=== PATIENT | female | born 1975 | race American Indian/Alaskan Native ===

== ENCOUNTER 2017-02-21 07:53 | Emergency (ER) | payer OTHER ==
[2017-02-21 08:02] VITALS: BP 114/75
[2017-02-21] MEDS ORDERED: XOPENEX IH ONE (10:26)
[2017-02-21] MEDS ORDERED: ORAPRED ONE (10:39)
[2017-02-21] MEDS ORDERED: FLEXERIL PO ONE (11:50)
[2017-02-21] MEDS ORDERED: TYLENOL PO ONE (11:50)
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
== END 2017-02-21 13:47 | disposition home or self-care (01) ==
LOC: ED 07:53
DX: S93.601A Unspecified sprain of right foot, initial encounter (principal); G43.909 Migraine, unspecified, not intractable, without status migrainosus; E66.9 Obesity, unspecified; Z88.0 Allergy status to penicillin; V43.62XA Car passenger injured in collision with other type car in traffic accident, initial encounter; Y93.9 Activity, unspecified; Y99.9 Unspecified external cause status; Y92.410 Unspecified street and highway as the place of occurrence of the external cause
CPT/HCPCS: 99283; J7510

== ENCOUNTER 2017-05-24 11:31 | Emergency (ER) | payer OTHER | END 2017-05-24 11:32 | disposition left against medical advice (07) | LOC: ED 11:31 | DX: Z53.21 Procedure and treatment not carried out due to patient leaving prior to being seen by health care provider (principal) ==

== ENCOUNTER 2018-05-31 16:21 | Emergency (ER) | payer OTHER ==
[2018-05-31 17:38] VITALS: BP 114/90
[2018-05-31 18:31] LABS: Basophils % (Auto) 0.7 % (0.0-1.8); Eosinophils # (Auto) 0.3 K/mm3 (0.0-0.4); Eosinophils % (Auto) 4.1 % (0.0-4.3); Hematocrit 36.9 % (30.3-42.9); Hemoglobin 12.6 gm/dl (10.1-14.3); Lymphocytes # (Auto) 3.7 K/mm3 (1.2-5.4); Lymphocytes % (Auto) 49.2 % (13.4-35.0); Mean Corpuscular HGB Conc 34 % (30-34); Mean Corpuscular Volume 81 fl (79-97); Monocytes # (Auto) 0.6 K/mm3 (0.0-0.8); Monocytes % (Auto) 7.6 % (0.0-7.3); Platelet Count 190 K/mm3 (140-440); Red Blood Count 4.54 M/mm3 (3.65-5.03); Red Cell Distribution Width 13.7 % (13.2-15.2)
[2018-05-31 18:44] LABS: BUN/Creatinine Ratio 16; Blood Urea Nitrogen 8 mg/dL (7-17); Calcium 8.9 mg/dL (8.4-10.2); Hemolysis Index 9
[2018-05-31] MEDS ORDERED: DECADRON IM ONE (19:52)
[2018-05-31] MEDS ORDERED: TYLENOL PO ONE (19:52)
[2018-05-31] MEDS ORDERED: PROVENTIL IH ONE (19:52)
[2018-05-31] MEDS ORDERED: TYLENOL #3 PO ONE (19:52)
--- NOTE | 2018-05-31 20:03 | Emergency Department Report ---
- General Chief Complaint: Upper Respiratory Infection Stated Complaint: FLU LIKE Time Seen by Provider: 05/31/18 19:50 Source: patient Mode of arrival: Ambulatory Limitations: No Limitations - History of Present Illness Initial Comments: Patient is a 42-year-old female with history of bronchitis and presents for a cough yellow green nocturnal fever with wheezing with head Sinus congestion, patient knows the last 3 days of cough producing chest pain 3/10 left lateral coughing there is no nausea vomiting no back pain dizziness lightheadedness no activity intolerance PND shortness of breath, is improved albuterol inhaler which she ran out of today. MD Complaint: fever, cough, sore throat, rhinorrhea, nasal congestion, sinus pain Onset/Timin -: week(s) Severity: moderate Severity scale (0 -10): 4 Quality: sharp Consistency: intermittent Improves With: other (albutero) Worsens With: other (environment ) Context: sick contacts Associated Symptoms: fever, chills, headache, rhinorrhea, nasal congestion, sore throat, cough, chest pain, shortness of breath, ear pain. denies: rash Treatments Prior to Arrival: none - Related Data Previous Rx's Medication Instructions Recorded Last Taken Type levoFLOXacin [Levaquin TAB] 500 mg PO QDAY #2 tablet 07/14/15 Unknown Rx metroNIDAZOLE [Flagyl] 500 mg PO Q8HR #6 tablet 07/14/15 Unknown Rx Acetaminophen [Acetaminophen TAB] 500 mg PO Q6HR PRN #30 tablet 02/21/17 Unknown Rx Cyclobenzaprine [Flexeril] 10 mg PO TID PRN #12 tablet 02/21/17 Unknown Rx ALBUTEROL Inhaler(NF) [VENTOLIN 2 puff IH Q4H PRN #1 inha 05/31/18 Unknown Rx Inhaler(NF)] Azithromycin [Zithromax Z-GENESIS] 250 mg PO DAILY #6 tab 05/31/18 Unknown Rx Codeine Phosphate/Guaifenesin 5 ml PO TID PRN #120 ml 05/31/18 Unknown Rx [Guaifen-Codeine 100-10 mg/5 ml] Dexamethasone [Decadron] 4 mg PO Q12H 3 Days #6 tablet 05/31/18 Unknown Rx Ibuprofen 800 mg PO TID PRN #30 tablet 05/31/18 Unknown Rx Allergies Allergy/AdvReac Type Severity Reaction Status Date / Time Penicillins AdvReac Rash Verified 07/09/15 16:43 ED Review of Systems ROS: Stated complaint: FLU LIKE Other details as noted in HPI Constitutional: denies: chills, fever Eyes: denies: eye pain, eye discharge, vision change ENT: ear pain, throat pain, congestion Respiratory: cough, shortness of breath, wheezing Cardiovascular: chest pain Endocrine: no symptoms reported Gastrointestinal: denies: abdominal pain, nausea, diarrhea Genitourinary: denies: urgency, dysuria, discharge Musculoskeletal: denies: back pain, joint swelling, arthralgia Skin: denies: rash, lesions Neurological: denies: headache, weakness, paresthesias Psychiatric: denies: anxiety, depression Hematological/Lymphatic: denies: easy bleeding, easy bruising ED Past Medical Hx - Past Medical History Previous Medical History?: Yes Hx Headaches / Migraines: Yes Hx COPD: No Additional medical history: OBESITY - Surgical History Past Surgical History?: Yes Additional Surgical History: BILATERAL EYE SURGERY --TIGHTENED EYE MUSCLES. C- SECTION X 2, HYSTERECTOMY - Social History Smoking Status: Never Smoker Substance Use Type: None - Medications Home Medications: Home Medications Medication Instructions Recorded Confirmed Last Taken Type levoFLOXacin [Levaquin TAB] 500 mg PO QDAY #2 tablet 07/14/15 Unknown Rx metroNIDAZOLE [Flagyl] 500 mg PO Q8HR #6 tablet 07/14/15 Unknown Rx Acetaminophen [Acetaminophen TAB] 500 mg PO Q6HR PRN #30 tablet 02/21/17 Unknown Rx Cyclobenzaprine [Flexeril] 10 mg PO TID PRN #12 tablet 02/21/17 Unknown Rx ALBUTEROL Inhaler(NF) [VENTOLIN 2 puff IH Q4H PRN #1 inha 05/31/18 Unknown Rx Inhaler(NF)] Azithromycin [Zithromax Z-GENESIS] 250 mg PO DAILY #6 tab 05/31/18 Unknown Rx Codeine Phosphate/Guaifenesin 5 ml PO TID PRN #120 ml 05/31/18 Unknown Rx [Guaifen-Codeine 100-10 mg/5 ml] Dexamethasone [Decadron] 4 mg PO Q12H 3 Days #6 tablet 05/31/18 Unknown Rx Ibuprofen 800 mg PO TID PRN #30 tablet 05/31/18 Unknown Rx ED Physical Exam - General Limitations: No Limitations General appearance: alert, in no apparent distress - Head Head exam: Present: atraumatic, normocephalic - Eye Eye exam: Present: normal appearance, PERRL, EOMI Pupils: Present: normal accommodation - ENT ENT exam: Present: normal orophraynx, mucous membranes moist, TM's normal bilaterally, normal external ear exam - Neck Neck exam: Present: normal inspection, full ROM. Absent: tenderness, meningismus, lymphadenopathy, thyromegaly - Respiratory Respiratory exam: Present: normal lung sounds bilaterally, wheezes (mild exp wheezes bilat upper ), chest wall tenderness (left lateral chest wall tenderness ). Absent: respiratory distress, stridor - Cardiovascular Cardiovascular Exam: Present: regular rate, normal rhythm, normal heart sounds. Absent: systolic murmur, diastolic murmur, rubs, gallop - GI/Abdominal GI/Abdominal exam: Present: soft, normal bowel sounds. Absent: tenderness, rigi d, bruit, hernia - Rectal Rectal exam: Present: deferred - Extremities Exam Extremities exam: Present: normal inspection, full ROM, normal capillary refill. Absent: tenderness, pedal edema, joint swelling - Back Exam Back exam: Present: normal inspection, full ROM. Absent: tenderness, CVA tenderness (R), CVA tenderness (L), muscle spasm, rash noted - Neurological Exam Neurological exam: Present: alert, oriented X3, CN II-XII intact, normal gait, reflexes normal - Psychiatric Psychiatric exam: Present: normal affect, normal mood - Skin Skin exam: Present: warm, dry, intact, normal color. Absent: rash ED Course Vital Signs 05/31/18 05/31/18 05/31/18 16:27 17:37 20:20 Temperature 98.4 F Pulse Rate 64 75 Respiratory 20 18 16 Rate Blood Pressure 103/69 Blood Pressure 114/90 [Right] O2 Sat by Pulse 97 100 Oximetry 05/31/18 20:22 Temperature Pulse Rate Respiratory 16 Rate Blood Pressure Blood Pressure [Right] O2 Sat by Pulse Oximetry ED Medical Decision Making - Lab Data Result diagrams: 05/31/18 17:56 05/31/18 17:56 Labs 05/31/18 05/31/18 05/31/18 17:56 17:56 17:56 WBC 7.5 RBC 4.54 Hgb 12.6 Hct 36.9 MCV 81 MCH 28 MCHC 34 RDW 13.7 Plt Count 190 Lymph % (Auto) 49.2 H Tucker % (Auto) 7.6 H Eos % (Auto) 4.1 Baso % (Auto) 0.7 Lymph # 3.7 Tucker # 0.6 Eos # 0.3 Baso # 0.0 Seg Neutrophils % 38.4 L Seg Neutrophils # 2.9 Sodium 140 Potassium 3.6 Chloride 105.1 Carbon Dioxide 25 Anion Gap 14 BUN 8 Creatinine 0.5 L Estimated GFR > 60 BUN/Creatinine Ratio 16 Glucose 94 Calcium 8.9 Troponin T < 0.010 HCG, Qual Negative - Radiology Data Radiology results: report reviewed, image reviewed FINDINGS: The cardiomediastinal silhouette appears normal. The lungs are clear. The bones and soft tissues are unremarkable. IMPRESSION: No evidence of acute cardiopulmonary disease Transcribed By: FLAVIO Dictated By: CRUZITO FREDERICK MD Electronically Authenticated By: CRUZITO FREDERICK MD Signed Date/Time: 05/31/182031 - Medical Decision Making Chest x-ray no infiltrates no opacities this is likely bronchitis symptoms improved after neb treatments and steroids UMED patient, [facility] ED from room to maintain side and returned around without increased shortness of breath or wheezing patient is breathing has returned to baseline plan DC home steroid burst albuterol Zpack follow with PCP in 2-3 days return to emergency department should symptoms worsen patient verbalized understanding and agreement with same patient DC'd home in stable condition at this time Critical care attestation.: If time is entered above; I have spent that time in minutes in the direct care of this critically ill patient, excluding procedure time. ED Disposition Clinical Impression: Bronchitis Disposition: [id number] TO HOME OR SELFCARE Is pt being admited?: No Does the pt Need Aspirin: No Condition: Good Instructions: Acute Bronchitis (ED), Upper Respiratory Infection (ED) Prescriptions: ALBUTEROL Inhaler(NF) [VENTOLIN Inhaler(NF)] 2 puff IH Q4H PRN #1 inha PRN Reason: shortness of breath wheezing Azithromycin [Zithromax Z-GENESIS] 250 mg PO DAILY #6 tab Codeine Phosphate/Guaifenesin [Guaifen-Codeine 100-10 mg/5 ml] 5 ml PO TID PRN #120 ml PRN Reason: Cough Dexamethasone [Decadron] 4 mg PO Q12H 3 Days #6 tablet Ibuprofen 800 mg PO TID PRN #30 tablet PRN Reason: pain Referrals: PRIMARY CARE, [Primary Care Provider] - 3-5 Days [facility] [Outside] - 3-5 Days Forms: Work/School Release Form(ED) Time of Disposition: 20:58
--- NOTE | 2018-05-31 20:32 | XRay Report ---
FINAL REPORT EXAM: XR CHEST ROUTINE 2V HISTORY: cough productive fever TECHNIQUE: 2 views of the chest. PRIORS: None. FINDINGS: The cardiomediastinal silhouette appears normal. The lungs are clear. The bones and soft tissues are unremarkable. IMPRESSION: No evidence of acute cardiopulmonary disease
== END 2018-05-31 21:20 | disposition home or self-care (01) ==
LOC: ED 16:21
DX: J40 Bronchitis, not specified as acute or chronic (principal); G43.909 Migraine, unspecified, not intractable, without status migrainosus; E66.9 Obesity, unspecified; Z98.890 Other specified postprocedural states; Z90.710 Acquired absence of both cervix and uterus; Z88.0 Allergy status to penicillin
CPT/HCPCS: 36415; 71046; 80048; 84484; 84703; 85025; 93005; 93010; 94640; 96372; 99284; J1100

== ENCOUNTER 2020-04-22 11:41 | Emergency (ER) | payer SELFPAY ==
[2020-04-22 11:53] VITALS: BP 109/72
--- NOTE | 2020-04-22 12:03 | Event Note ---
ED Screening Note Date of service: 04/22/20 Time: 11:59 ED Screening Note: 44-year-old -[place] female presents to the emergency room for chest pain shortness of breath left arm pain This initial assessment/diagnostic orders/clinical plan/treatment(s) is/are subject to change based on patients health status, clinical progression and re- assessment by fellow clinical providers in the ED. Further treatment and workup at subsequent clinical providers discretion. Patient/guardian urged not to elope from the ED as their condition may be serious if not clinically assessed and managed. Initial orders include:
[2020-04-22 12:47] LABS: Basophils % (Auto) 0.7 % (0.0-1.8); Eosinophils # (Auto) 0.1 K/mm3 (0.0-0.4); Eosinophils % (Auto) 1.2 % (0.0-4.3); Hematocrit 35.9 % (30.3-42.9); Hemoglobin 12.9 gm/dl (10.1-14.3); Lymphocytes # (Auto) 2.5 K/mm3 (1.2-5.4); Lymphocytes % (Auto) 32.5 % (13.4-35.0); Mean Corpuscular HGB Conc 36 % (30-34); Mean Corpuscular Volume 80 fl (79-97); Monocytes # (Auto) 0.6 K/mm3 (0.0-0.8); Monocytes % (Auto) 7.8 % (0.0-7.3); Platelet Count 212 K/mm3 (140-440); Red Blood Count 4.49 M/mm3 (3.65-5.03)
[2020-04-22 13:10] LABS: Alanine Aminotransferase 11 units/L (7-56); Albumin 4.2 g/dL (3.9-5); BUN/Creatinine Ratio 22; Blood Urea Nitrogen 11 mg/dL (7-17); Calcium 9.5 mg/dL (8.4-10.2); Hemolysis Index 4
--- NOTE | 2020-04-22 13:25 | XRay Report ---
CHEST 2 VIEWS INDICATION / CLINICAL INFORMATION: Chest pain and shortness of breath. COMPARISON: None available. FINDINGS: SUPPORT DEVICES: None. HEART / MEDIASTINUM: No significant abnormality. LUNGS / PLEURA: No significant pulmonary or pleural abnormality. No pneumothorax. ADDITIONAL FINDINGS: No significant additional findings. IMPRESSION: 1. No acute findings. Signer Name: Endy Alcazar MD Signed: 04/22/2020 1:20 PM Workstation Name: [id number]
--- NOTE | 2020-04-22 14:35 | Emergency Department Report ---
ED Chest Pain HPI - General Chief Complaint: Chest Pain Stated Complaint: CHEST PAIN, SOB PUI?: No Time Seen by Provider: 04/22/20 14:17 Source: patient Mode of arrival: Ambulatory Limitations: No Limitations - History of Present Illness Initial Comments: CC: chest pain arm pain HPI: This is a 44 yo female with hx of DVT, migraine headache who presents chest pain and left arm pain. Pain began last in the left arm. Then migrated to the left chest. She has dull aching pain mainly at night. No association with inspiration or movement. Her aunt has a history of pulmonary embolism. She is concerned for lung clot. She has a history of DVT behind her knee. She was told that aspirin was to treatment. She has not taken anticoagulation in the past. Patient does have associated shortness of breath. She states that she feels like "anxiety". Patient has intermittent chest pain worse at night. She does not have chest pain throughout the day. Since patient has had left arm larger than the right arm. She is concerned about risk for DVT. She recently had venous Doppler studies ordered by PCP. Patient had negative COVID test performed yesterday. MD Complaint: chest pain -: Gradual, days(s) (6) Onset: during rest Pain Location: left chest Pain Radiation: LUE Severity: moderate Quality: aching, sharp, dull Consistency: intermittent Improves With: nothing Worsens With: nothing re: dyspnea - Related Data Previous Rx's Medication Instructions Recorded Last Taken Type levoFLOXacin [Levaquin TAB] 500 mg PO QDAY #2 tablet 07/14/15 Unknown Rx metroNIDAZOLE [Flagyl] 500 mg PO Q8HR #6 tablet 07/14/15 Unknown Rx Acetaminophen [Acetaminophen TAB] 500 mg PO Q6HR PRN #30 tablet 02/21/17 Unknown Rx Cyclobenzaprine [Flexeril] 10 mg PO TID PRN #12 tablet 02/21/17 Unknown Rx ALBUTEROL Inhaler(NF) [VENTOLIN 2 puff IH Q4H PRN #1 inha 05/31/18 Unknown Rx Inhaler(NF)] Azithromycin [Zithromax Z-GENESIS] 250 mg PO DAILY #6 tab 05/31/18 Unknown Rx Codeine Phosphate/Guaifenesin 5 ml PO TID PRN #120 ml 05/31/18 Unknown Rx [Guaifen-Codeine 100-10 mg/5 ml] Ibuprofen [Ibuprofen 800] 800 mg PO TID PRN #30 tablet 05/31/18 Unknown Rx dexAMETHasone [Decadron] 4 mg PO Q12H 3 Days #6 tablet 05/31/18 Unknown Rx Allergies Allergy/AdvReac Type Severity Reaction Status Date / Time Penicillins AdvReac Rash Verified 07/09/15 16:43 Heart Score - HEART Score History: Slightly suspicious EKG: Normal Age: < 45 Risk factors: No known risk factors Troponin: < normal limit HEART Score: 0 ED Review of Systems ROS: Stated complaint: CHEST PAIN, SOB Other details as noted in HPI Comment: All other systems reviewed and negative Constitutional: denies: fever, malaise Respiratory: shortness of breath. denies: cough Cardiovascular: chest pain Gastrointestinal: denies: abdominal pain, nausea, vomiting ED Past Medical Hx - Past Medical History Previous Medical History?: Yes Hx Headaches / Migraines: Yes Hx COPD: No Additional medical history: OBESITY,DVT - Surgical History Past Surgical History?: Yes Additional Surgical History: BILATERAL EYE SURGERY --TIGHTENED EYE MUSCLES. C- SECTION X 2, HYSTERECTOMY - Social History Smoking Status: Never Smoker Substance Use Type: None - Medications Home Medications: Home Medications Medication Instructions Recorded Confirmed Last Taken Type levoFLOXacin [Levaquin TAB] 500 mg PO QDAY #2 tablet 07/14/15 Unknown Rx metroNIDAZOLE [Flagyl] 500 mg PO Q8HR #6 tablet 07/14/15 Unknown Rx Acetaminophen [Acetaminophen TAB] 500 mg PO Q6HR PRN #30 tablet 02/21/17 Unknown Rx Cyclobenzaprine [Flexeril] 10 mg PO TID PRN #12 tablet 02/21/17 Unknown Rx ALBUTEROL Inhaler(NF) [VENTOLIN 2 puff IH Q4H PRN #1 inha 05/31/18 Unknown Rx Inhaler(NF)] Azithromycin [Zithromax Z-GENESIS] 250 mg PO DAILY #6 tab 05/31/18 Unknown Rx Codeine Phosphate/Guaifenesin 5 ml PO TID PRN #120 ml 05/31/18 Unknown Rx [Guaifen-Codeine 100-10 mg/5 ml] Ibuprofen [Ibuprofen 800] 800 mg PO TID PRN #30 tablet 05/31/18 Unknown Rx dexAMETHasone [Decadron] 4 mg PO Q12H 3 Days #6 tablet 05/31/18 Unknown Rx ED Physical Exam - General Limitations: No Limitations General appearance: alert, in no apparent distress - Head Head exam: Present: atraumatic, normocephalic - Eye Eye exam: Present: normal appearance - ENT ENT exam: Present: mucous membranes moist - Neck Neck exam: Present: normal inspection, full ROM - Respiratory Respiratory exam: Present: normal lung sounds bilaterally. Absent: respiratory distress, wheezes, rales, rhonchi - Cardiovascular Cardiovascular Exam: Present: regular rate, normal rhythm, normal heart sounds. Absent: systolic murmur, diastolic murmur, rubs, gallop - GI/Abdominal GI/Abdominal exam: Present: soft, normal bowel sounds. Absent: distended, tenderness, guarding, rebound - Extremities Exam Extremities exam: Present: other (Left arm: No edema no erythema) - Back Exam Back exam: Present: normal inspection - Neurological Exam Neurological exam: Present: alert, oriented X3 - Psychiatric Psychiatric exam: Present: normal affect, normal mood - Skin Skin exam: Present: warm, dry, intact, normal color. Absent: rash ED Course Vital Signs 04/22/20 04/22/20 04/22/20 11:48 14:40 14:41 Temperature 98.3 F Pulse Rate 77 Respiratory 18 20 20 Rate Blood Pressure 109/72 O2 Sat by Pulse 100 Oximetry ED Medical Decision Making - Lab Data Result diagrams: 04/22/20 12:11 04/22/20 12:11 - EKG Data -: EKG Interpreted by Or EKG shows normal: sinus rhythm, axis, intervals, QRS complexes, ST-T waves Rate: normal - EKG Data Interpretation: normal EKG 04/22/20 14:34 EKG obtained 1137 EKG interpreted by ms Normal sinus rhythm rate 80 bpm normal axis normal QTC no ST elevation prolonged MO interval - Radiology Data Radiology results: report reviewed Chest radiograph PA lateral 2 views: No acute findings according to radiology impression CT ANGIO CHEST: NAP - Medical Decision Making Atypical chest pain AMI/PE ruled out. referral to cardiology given and faxed. Critical care attestation.: If time is entered above; I have spent that time in minutes in the direct care of this critically ill patient, excluding procedure time. ED Disposition Clinical Impression: Chest pain Disposition: DC-01 TO HOME OR SELFCARE Is pt being admited?: No Does the pt Need Aspirin: No Condition: Stable Instructions: Chest Pain (ED), Nonspecific Chest Pain, Adult Referrals: ROBERT TOPETE MD [Staff Physician] - 3-5 Days
[2020-04-22] MEDS ORDERED: HYDROcodone/ACETAMINOPHEN 5-325 MG TAB PO ONE (14:36)
[2020-04-22] MEDS ORDERED: IBUPROFEN 800 MG TAB PO ONE (14:36)
[2020-04-22] MEDS ORDERED: ONDANSETRON 4 MG ODT TAB PO ONE (14:36)
--- NOTE | 2020-04-22 16:39 | Cat Scan Report ---
CTA CHEST WITH IV CONTRAST INDICATION: chest pain hx of DVT. TECHNIQUE: Axial CT images were obtained through the chest after injection of 100 cc Omni 350 IV contrast. 3 jean pierre ne MIP reconstructions were produced. All CT scans at this location are performed using CT dose reduc tion for ALARA by means of automated exposure control. COMPARISON: None available. FINDINGS: PULMONARY ARTERIES: No pulmonary emboli. THORACIC AORTA: No acute abnormality. HEART: Moderate cardiomegaly CORONARY ARTERIES: No significant calcification. PLEURA: No pleural effusion. No pneumothorax. LYMPH NODES: No significant adenopathy. LUNGS: No acute air space or interstitial disease. ADDITIONAL FINDINGS: None. UPPER ABDOMEN: No acute findings. Gallbladder surgically absent SKELETAL STRUCTURES: No significant osseous abnormality. IMPRESSION: 1. No CT evidence for pulmonary embolism. 2. Cardiomegaly without CHF Signer Name: Wild Acosta MD Signed: 04/22/2020 4:35 PM Workstation Name: [id number]
== END 2020-04-22 17:49 | disposition home or self-care (01) ==
LOC: ED 11:41
DX: R07.89 Other chest pain (principal); G43.909 Migraine, unspecified, not intractable, without status migrainosus; Z98.890 Other specified postprocedural states; Z79.899 Other long term (current) drug therapy; Z88.0 Allergy status to penicillin
CPT/HCPCS: 36415; 71046; 71275; 80053; 84484; 85025; 93005; 99284; Q9967; Q0162